=== PATIENT | female | born 1940 ===

== ENCOUNTER 2018-04-19 07:34 | Emergency (ER) | payer SELFPAY ==
[2018-04-19 07:42] VITALS: BMI 24.3
[2018-04-19 07:48] VITALS: BP 136/80; PULSE 73; RESP 18; TEMP 97.6; O2SAT 96
[2018-04-19] MEDS ORDERED: Oxycodone/Acetaminophen 5/325 mg Tab PO STA (08:00)
--- NOTE | 2018-04-19 08:03 | C.PDOC ---
History Of Present Illness 77 year old female, with Hx of "severe arthritis" and diabetes, presents to the ED with complaints of chronic right-sided shoulder pain and hip pain x5 days. States she had similar symptoms before but this was more intense than usual and worsens with movement. Patient states she normally takes tylenol when needed and last use was at 10pm. Patient was told not to take Motrin due to her history of diabetes. Otherwise she denies any trauma or other associated symptoms. VIA TRANS CO EXAC CHRONIC R SHOULDER AND HIP PAIN X 5 DAYS. PS HO "SEVERE ARTHRITIS" NORMALLY TAKES TYLENOL NEEDED, LAST DOSE @ 10 PM. PS PREV TOLD NOT TO TAKE MOTRIN DUE TO HO DM. PAIN LOCALIZED, SIM TO PRIOR MORE INTENSE THAN USUAL WORSE W MOVEMENT. NO TRAUMA, OTHER ASSOC SX EXAM MILD DIST NONTOXIC EXT RUE LIMITED FULL ROM DUE TO PAIN NONTEND ATRAUM; R HIP AROM WO DIFF ATRAUM NEURO NO FOCAL DEF GAIT WNL SKIN NEG Time Seen by Provider: 04/19/18 07:59 Chief Complaint (Nursing): Upper Extremity Problem/Injury History Per: Patient History/Exam Limitations: no limitations Onset/Duration Of Symptoms: Days Current Symptoms Are (Timing): Still Present Past Medical History Reviewed: Historical Data, Nursing Documentation, Vital Signs Vital Signs: Last Vital Signs Temp 97.6 F 04/19/18 07:42 Pulse 73 04/19/18 07:42 Resp 18 04/19/18 07:42 BP 136/80 04/19/18 07:42 Pulse Ox 96 04/19/18 07:42 - Medical History PMH: Arthritis, Diabetes, Gall Bladder Disease Denies: Chronic Kidney Disease Surgical History: Appendectomy, Cholecystectomy (Laparoscopic), Tonsillectomy - [facility] Procedures LAPAROSCOPIC CHOLECYSTECTOMY (12/10/14) VACCINATION NEC (12/10/14) Family History: States: No Known Family Hx - Social History Hx Tobacco Use: No Hx Alcohol Use: No Hx Substance Use: No - Immunization History Hx Tetanus Toxoid Vaccination: No Hx Influenza Vaccination: Yes Hx Pneumococcal Vaccination: Yes Review Of Systems Except As Marked, All Systems Reviewed And Found Negative. Cardiovascular: Negative for: Chest Pain Musculoskeletal: Positive for: Shoulder Pain (Right-sided), Other (Hip Pain) Physical Exam - Physical Exam Appears: Non-toxic, In Acute Distress (Mild) Skin: Warm, Dry, No Rash, No Ecchymosis Head: Atraumatic, Normacephalic Eye(s): bilateral: Normal Inspection Oral Mucosa: Moist Cardiovascular: Rhythm Regular, No Murmur Respiratory: Normal Breath Sounds, No Rales, No Rhonchi, No Wheezing Extremity: No Tenderness, Other (RUQ limited ROM due to pain) Extremity: Right: Atraumatic (R hip active ROM without difficulty) Neurological/Psych: Oriented x3, Normal Speech, Other (No focal deficits) Gait: Other (Within normal limits) ED Course And Treatment O2 Sat by Pulse Oximetry: 96 (RA) Pulse Ox Interpretation: Normal Medical Decision Making Medical Decision Making: Plan: --Motrin --Percocet Disposition Counseled Patient/Family Regarding: Diagnosis, Need For Followup, Rx Given - Disposition Referrals: [facility] [Outside] [facility] [Outside] Disposition: HOME/ ROUTINE Disposition Time: 08:02 Condition: IMPROVED Prescriptions: Ibuprofen [Motrin] 1 tab PO TID PRN #15 tab PRN Reason: Pain Tramadol HCl [Ultram] 50 mg PO QID #20 tab Instructions: Chronic Pain (DC) Forms: [employer] (Telugu) Print Language: SWEDISH - Clinical Impression Clinical Impression: Chronic arthritis, Chronic pain - Scribe Statement The provider has reviewed the documentation as recorded by the Akiko Cole Provider Attestation: All medical record entries made by the Amariibromelia were at my direction and personally dictated by me. I have reviewed the chart and agree that the record accurately reflects my personal performance of the history, physical exam, medical decision making, and the department course for this patient. I have also personally directed, reviewed, and agree with the discharge instructions and disposition.
[2018-04-19] MEDS ORDERED: Oxycodone/Acetaminophen 5/325 mg Tab ONE (08:04)
== END 2018-04-19 08:11 | disposition home or self-care (01) ==
LOC: C.ER 07:34
DX: G89.29 Other chronic pain (principal); M19.90 Unspecified osteoarthritis, unspecified site; E11.9 Type 2 diabetes mellitus without complications